=== PATIENT | male | born 1970 | race Hispanic/Latino ===

== ENCOUNTER 2019-04-06 09:10 | Emergency (ER) | payer OTHER ==
[~2019-04-06] VITALS: Ht 167.6 cm; Wt 95.4 kg
[2019-04-06] MEDS: METOCLOPRAMIDE HCL 10 MG/2ML VIAL IV NR (10:03)
[2019-04-06] MEDS: SODIUM CHLORIDE 0.9% 1000ML 1,000 ML IV SCH (10:04)
[2019-04-06] MEDS: FAMOTIDINE 20 MG/2 ML VIAL IV NR (10:04)
[2019-04-06] MEDS ORDERED: METOCLOPRAMIDE HCL 10 MG/2ML VIAL ONE (10:05)
[2019-04-06] MEDS ORDERED: SODIUM CHLORIDE 0.9% 1000ML 1,000 ML ONE (10:06)
[2019-04-06] MEDS ORDERED: FAMOTIDINE 20 MG/2 ML VIAL IV ONE (10:06)
--- NOTE | 2019-04-06 10:20 | Diagnostic Imaging Report ---
EXAMINATION: ABDOMEN COMPLETE - HOPD INDICATION: Nausea, vomiting, alcohol intoxication COMPARISON: None FINDINGS: LINES/TUBES:None LUNGS:The lungs are well-inflated. No focal consolidation or pulmonary edema. PLEURA:No pleural effusion or pneumothorax. MEDIASTINUM:The cardiomediastinal silhouette appears normal in size and shape. BONES/SOFT TISSUES:No acute osseous injury. ABDOMEN:Nonobstructive bowel gas pattern. No free air. No abnormal calcifications. The osseous structures appear unremarkable. IMPRESSION: No focal pneumonia or pulmonary edema. Nonobstructive bowel gas pattern. Signed by: Neelima Valencia MD on 04/06/2019 10:17 AM
--- NOTE | 2019-04-06 11:05 | NUR ---
PT. REASSESSED. STATES NAUSEA MUCH BETTER BUT IS SHAKING. BS CHECKED, READING OF 158. PROVIDER NOTIFIED. ORDERS TO GIVE PT. WATER/GATORADE TO SEE IF HE CAN TOLERATE PO LIQUIDS.
--- NOTE | 2019-04-06 11:33 | NUR ---
PT. STATES HAS BEEN ABLE TO DRINK 1/3 CUP WATER WITH NO COMPLAINTS
[2019-04-06 12:19] VITALS: BP 160/81
== END 2019-04-06 12:21 | disposition home or self-care (01) ==
LOC: FSED 09:10
DX: K29.20 Alcoholic gastritis without bleeding (principal); R11.2 Nausea with vomiting, unspecified; E11.65 Type 2 diabetes mellitus with hyperglycemia; E86.9 Volume depletion, unspecified; Z79.4 Long term (current) use of insulin
CPT/HCPCS: 74022; 80048; 80076; 81003; 82553; 84484; 85025; 93005; 99284; J2765; J7030